=== PATIENT | female | born 1940 | race Two or more races ===

== ENCOUNTER 2024-07-02 19:38 | Inpatient (IN) | payer OTHER ==
[2024-07-02] MEDS ORDERED: ACETAMINOPHEN INJECTION 100 ML ONE (21:22)
[2024-07-02] MEDS: SODIUM CHLORIDE 0.9% 500 ML INFUS.BAG IV ONE (21:24)
[2024-07-02] MEDS: ACETAMINOPHEN 1000 MG/100 ML BAG IVPB ONE (21:24)
[2024-07-02 21:43] LABS: HEMATOCRIT 41.4 % (32.4-45.2); HEMOGLOBIN 13.8 GM/dL (10.7-15.3); MCH 27.8 pg (25.7-33.7); MCHC 33.4 g/dl (32.0-36.0); MEAN CELL VOLUME 83.2 fl (80-96); MEAN PLT VOLUME 7.3 fl (7.5-11.1); PLATELET COUNT 237 10^3/uL (134-434); RBC 4.98 M/mm3 (3.60-5.2); RDW 14.2 % (11.6-15.6); WHITE BLOOD COUNT 2.7 K/mm3 (4.0-10.0)
[2024-07-02] MEDS ORDERED: ALBUTEROL SO4 2.5/IPRATROPIUM 0.5 INH SOL 3 ML VIAL.NEB. NEB ONE (21:46)
[2024-07-02 22:06] LABS: POTASSIUM 4.6 mmol/L (3.5-5.1)
[2024-07-02 22:08] LABS: ALBUMIN 3.8 g/dl (3.4-5.0); BLOOD UREA NITROGEN 16.3 mg/dL (7-18); CALCIUM 8.7 mg/dL (8.5-10.1); MAGNESIUM 1.9 mg/dL (1.8-2.4)
[2024-07-02 22:12] LABS: PHOSPHOROUS 3.4 mg/dL (2.5-4.9)
[2024-07-02 22:13] LABS: BILIRUBIN,TOTAL 0.5 mg/dL (0.2-1); TOT PROT 7.6 g/dl (6.4-8.2)
[2024-07-02 22:33] LABS: ANISOCYTOSIS 1+; MACROCYTOSIS 1+
[2024-07-02 22:54] LABS: N-TERMINAL BNP 406.8 pg/ml (5-450)
[2024-07-02] MEDS: ALBUTEROL SO4 2.5/IPRATROPIUM 0.5 INH SOL 3 ML VIAL.NEB. NEB ONE (23:55)
[2024-07-02] MEDS: AZITHROMYCIN IVPB 500 MG in DEXTROSE 5%-WATER - 250 ML IVPB ONE (23:56)
[2024-07-02] MEDS: CEFTRIAXONE 1 GM in DEXTROSE 5%-WATER - 100 ML IVPB ONE (23:56)
[2024-07-02] MEDS: BUDESONIDE 0.5 MG/2 ML INH SUSP VIAL NEB ONE (23:56)
[2024-07-02] MEDS: OSELTAMIVIR PHOSPHATE 75 MG CAPSULE PO ONE (23:56)
[2024-07-02] MEDS: IBUPROFEN 600 MG TABLET (FP) PO ONE (23:56)
[2024-07-02] MEDS ORDERED: OSELTAMIVIR PHOSPHATE 75 MG CAPSULE ONE (23:59)
[2024-07-02] MEDS ORDERED: IBUPROFEN 100 MG/5 ML UNIT DOSE CUPS ONE (23:59)
[2024-07-03] MEDS ORDERED: AZITHROMYCIN IVPB 500 MG/250 ML BAG IVPB ONE
[2024-07-03] MEDS ORDERED: cefTRIAXone SODIUM 1 GM VIAL ONE
[2024-07-03] MEDS ORDERED: VANCOMYCIN 1 GM PREMIX (F) 1 GM/200 ML BAG ONE (01:12)
[2024-07-03] MEDS: VANCOMYCIN 1,000 MG in DEXTROSE 5%-WATER - 250 ML IVPB ONE (01:40)
[2024-07-03 02:39] LABS: PH,URINE 7.5 (5.0-8.0); URINE APPEARANCE CLEAR; URINE BILIRUBIN NEGATIVE (NEGATIVE); URINE COLOR YELLOW; URINE GLUCOSE (UA) NEGATIVE (NEGATIVE); URINE KETONE NEGATIVE (NEGATIVE); URINE LEUK ESTERASE NEGATIVE (NEGATIVE); URINE NITRITE NEGATIVE (NEGATIVE); URINE PROTEIN NEGATIVE (NEGATIVE); URINE UROBILINOGEN 0.2 mg/dL (0.2-1.0)
[2024-07-03 03:12] VITALS: BMI 17.2
[2024-07-03] MEDS ORDERED: KETOROLAC TROMETHAMINE 10 MG TABLET PO PRN (05:56)
[2024-07-03] MEDS ORDERED: ALBUTEROL SO4 2.5/IPRATROPIUM 0.5 INH SOL 3 ML VIAL.NEB. NEB PRN (05:56)
[2024-07-03] MEDS: SODIUM CHLORIDE 1,000 ML IV SCH ×2 (06:22→09:26)
[2024-07-03] MEDS ORDERED: ACETAMINOPHEN 325 MG TABLET (FP) PO PRN (08:20)
[2024-07-03 09:19] LABS: BASO % 0.8 % (0-2.0); EOS % 0.2 % (0-4.5); HEMATOCRIT 38.3 % (32.4-45.2); HEMOGLOBIN 12.4 GM/dL (10.7-15.3); LYMPH % 26.2 % (8-40); MCH 27.6 pg (25.7-33.7); MCHC 32.5 g/dl (32.0-36.0); MEAN CELL VOLUME 84.9 fl (80-96); MEAN PLT VOLUME 7.6 fl (7.5-11.1); MONO % 18.2 % (3.8-10.2); NEUT % 54.6 % (42.8-82.8); PLATELET COUNT 213 10^3/uL (134-434); RBC 4.51 M/mm3 (3.60-5.2); RDW 14.2 % (11.6-15.6); WHITE BLOOD COUNT 3.6 K/mm3 (4.0-10.0)
[2024-07-03] MEDS: MULTIVITAMINS (DAILY MVI) TABLET (FP) PO SCH (09:26)
[2024-07-03] MEDS: LOSARTAN POTASSIUM 50 MG TABLET PO SCH (09:26)
[2024-07-03] MEDS: ENOXAPARIN NA (PORCINE) 40 MG/0.4 ML DISP.SYRIN SQ SCH (09:26)
[2024-07-03 09:41] LABS: CHOLESTEROL 165 mg/dL (50-200)
[2024-07-03 09:42] LABS: LDL CHOLESTEROL (ONLY SJRH) 83 mg/dL (5-100)
[2024-07-03 09:43] LABS: HDL CHOLESTEROL 65 mg/dL (40-60)
[2024-07-03] MEDS ORDERED: IBUPROFEN 600 MG TABLET (FP) PO PRN (09:59)
[2024-07-03] MEDS ORDERED: CEFTRIAXONE 1 GM in DEXTROSE 5%-WATER - 50 ML IVPB SCH (10:00)
[2024-07-03] MEDS: QUEtiapine FUMARATE 25 MG TABLET PO SCH ×2 (10:11→12:07)
[2024-07-03] MEDS: OSELTAMIVIR PHOSPHATE 30 MG CAPSULE PO SCH (10:32)
[2024-07-03] MEDS: CEFTRIAXONE 1 G/50 ML PREMIX 50 ML IVPB SCH (10:32)
[2024-07-03] MEDS: ALBUTEROL SO4 2.5/IPRATROPIUM 0.5 INH SOL 3 ML VIAL.NEB. NEB SCH (11:02)
[2024-07-03 11:33] LABS: BILIRUBIN,TOTAL 0.6 mg/dL (0.2-1); BLOOD UREA NITROGEN 12.4 mg/dL (7-18); CALCIUM 8.2 mg/dL (8.5-10.1); CREATININE 0.8 mg/dL (0.55-1.3); MAGNESIUM 1.9 mg/dL (1.8-2.4); PHOSPHOROUS 4.5 mg/dL (2.5-4.9); POTASSIUM 3.9 mmol/L (3.5-5.1); TOT PROT 6.1 g/dl (6.4-8.2)
[2024-07-03] MEDS: guaiFENesin/D-METHORPHAN HB 10 ML UNIT-DOSE CUPS PO SCH (12:07)
[2024-07-03] MEDS: ACETAMINOPHEN 325 MG TABLET (FP) PO PRN (16:35)
[2024-07-03] MEDS: AMPICILLIN NA/SULBACTAM NA 3 GM in SODIUM CHLORIDE 100 ML IVPB SCH (17:15)
[2024-07-03] MEDS: ATORVASTATIN CA 40 MG TABLET (FP) PO SCH (21:30)
[2024-07-03] MEDS ORDERED: MIRTAZAPINE 15 MG TABLET (FP) PO SCH (22:00)
[2024-07-04 09:27] LABS: EOS % 0.4 % (0-4.5); HEMATOCRIT 35.6 % (32.4-45.2); HEMOGLOBIN 11.9 GM/dL (10.7-15.3); LYMPH % 26.9 % (8-40); MCH 27.9 pg (25.7-33.7); MCHC 33.5 g/dl (32.0-36.0); MEAN CELL VOLUME 83.3 fl (80-96); MONO % 9.3 % (3.8-10.2); NEUT % 62.4 % (42.8-82.8); PLATELET COUNT 219 10^3/uL (134-434); RBC 4.27 M/mm3 (3.60-5.2); RDW 14.4 % (11.6-15.6); WHITE BLOOD COUNT 5.3 K/mm3 (4.0-10.0)
[2024-07-04] MEDS: ALBUTEROL SO4 2.5/IPRATROPIUM 0.5 INH SOL 3 ML VIAL.NEB. NEB SCH (09:28)
[2024-07-04 09:45] LABS: POTASSIUM 3.8 mmol/L (3.5-5.1)
[2024-07-04 09:49] LABS: CALCIUM 8.3 mg/dL (8.5-10.1)
[2024-07-04 09:50] LABS: MAGNESIUM 1.7 mg/dL (1.8-2.4)
[2024-07-04 09:53] LABS: CREATININE 0.9 mg/dL (0.55-1.3); PHOSPHOROUS 3.5 mg/dL (2.5-4.9)
[2024-07-04 20:24] VITALS: RESP 18
[2024-07-05 14:42] VITALS: BP 148/56; PULSE 90; TEMP 98.6
== END 2024-07-05 17:12 | disposition home or self-care (01) | DRG 194 ==
LOC: JER 19:38 → JERBED 22:32 → OBSVTOIN 07-03 02:58 → J5S 07-03 03:08
PROVIDERS: ADMIT Student in an Organized Health Care Education/Training Program; ATTEND Internal Medicine
DX: J18.9 Pneumonia, unspecified organism (principal); F05 Delirium due to known physiological condition; J10.1 Influenza due to other identified influenza virus with other respiratory manifestations; E78.5 Hyperlipidemia, unspecified; I10 Essential (primary) hypertension; F03.90 Unspecified dementia, unspecified severity, without behavioral disturbance, psychotic disturbance, mood disturbance, and anxiety
CPT/HCPCS: 0241U-QW; 36415; 71045-TC-FY; 80048; 80053; 80061; 81003; 83605; 83735; 83880; 84100; 84484; 85025; 87040; 87086; 87899; 93005; 93010; 94640; 94660; 97116-GP; 97162-GP; 99285-25; G0378; J0131